=== PATIENT | male | born 2000 | race African-American/Black ===

== ENCOUNTER 2023-03-10 16:16 | Emergency (ER) | payer BC, SELFPAY ==
--- NOTE | 2023-03-10 16:15 | DI.RAD_ITS ---
Exam(s) XR ANKLE RT COMPLETE EXAM: XR ANKLE RT COMPLETE CLINICAL HISTORY: injury, pain. TECHNIQUE: 2D digital imaging was performed. Three views. COMPARISON: No exams were available for comparison FINDINGS: BONES: Minimally displaced fracture lateral malleolus. No additional fractures identified. No bony destructive lesion is seen. JOINTS: Marked ankle mortise widening medially. SOFT TISSUE: Swelling. Punctate densities at the plantar aspect of the foot could represent debris o n the skin surface. IMPRESSION: Lateral malleolar fracture with marked medial ankle mortise widening. DATA REPOSITORY: RADIATION DOSE DELIVERED:
--- NOTE | 2023-03-10 16:15 | DI.RAD_ITS ---
Exam(s) XR TIB/FIB RT EXAM: XR TIB/FIB RT CLINICAL HISTORY: injury, pain. TECHNIQUE: 2D digital imaging was performed. Two views. COMPARISON: CR,XR XR ANKLE RT COMPLETE from 03/10/2023 FINDINGS: BONES: Lateral malleolar fracture is seen. There is widening of the medial ankle mortise. No fract ures are seen more proximally in the tibia and fibula. The knee is unremarkable as visualized. No b morgan destructive lesion is seen. . SOFT TISSUE: Swelling around malleoli. IMPRESSION: Lateral malleolar fracture with medial ankle mortise widening. DATA REPOSITORY: RADIATION DOSE DELIVERED:
[2023-03-10 16:20] VITALS: BP 161/94; PULSE 67; RESP 16; TEMP 37.1; O2SAT 100
--- NOTE | 2023-03-10 17:30 | DI.RAD_ITS ---
Exam(s) XR RIBS LT W PA LAT CHEST CLINICAL HISTORY pain, fall from 10ft. COMPARISON: No exams were available for comparison TECHNIQUE:: PA and lateral views of the chest and four views of the left ribs were performed. FINDINGS: LUNGS: Clear. No pleural abnormality seen. HEART: Normal. MEDIASTINUM: Normal. BONES: No displaced rib fracture is seen. No compression fractures are seen in the thoracic spine. No bony destructive lesion is seen. OTHER FINDINGS: None. IMPRESSION: 1. Unremarkable radiographic appearance of the left ribs. 2. No acute pulmonary findings.
--- NOTE | 2023-03-10 17:37 | DI.VRAD_ITS ---
PROCEDURE INFORMATION: Exam: XR Right Ankle Exam date and time: 03/10/2023 5:10 PM Age: 22 years old Clinical indication: Other: Injury, pain TECHNIQUE: Imaging protocol: Radiologic exam of the right ankle. Views: 3 or more views. COMPARISON: No relevant prior studies available. FINDINGS: Bones/joints: Fracture dislocation distal fibula. Widening and subluxation of the talotibial joint. Joint effusion. Punctate radiopaque densities in the plantar surface of the foot visualized. Soft tissues: Soft tissue swelling. IMPRESSION: Fracture dislocation of the ankle. Distal fibula fracture. Subluxation of the talocalcaneal joint. Dictated and Authenticated by: Kalee Coulter MD. Ordering:KIAH Garza MD
[2023-03-10] MEDS: Acetaminophen 325 MG TAB 650 MG PO (17:50)
[2023-03-10] MEDS: Ibuprofen 600 MG TAB PO (17:50)
--- NOTE | 2023-03-10 17:50 | DI.VRAD_ITS ---
PROCEDURE INFORMATION: Exam: XR Right Tibia and Fibula Exam date and time: 03/10/2023 5:12 PM Age: 22 years old Clinical indication: Other: Injury, pain TECHNIQUE: Imaging protocol: Radiologic exam of the right tibia and fibula. Views: 2 views. COMPARISON: CR XR ANKLE RT COMPLETE 12/12/2022 17:10 FINDINGS: Bones/joints: Distal fibula fracture. Widening of the talocalcaneal joint. Soft tissues: Soft tissue swelling of the ankle. IMPRESSION: Fractured distal fibula. Widening of the talocalcaneal joint. Dictated and Authenticated by: Kalee Coulter MD. Ordering:KIAH Garza MD
--- NOTE | 2023-03-10 17:50 | NUR.NOTE ---
Nursing Note: When asking pt during triage if anything else hurt, pt denied any other injuries. pt then told doctor his chest also hurt later on.
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
[2023-03-10] MEDS: HYDROmorphone 2 MG/ML SYR 1 MG IM (18:38)
--- NOTE | 2023-03-10 19:30 | DI.RAD_ITS ---
Exam(s) XR ANKLE RT COMPLETE EXAM: XR ANKLE RT COMPLETE CLINICAL HISTORY: post reduction/splint. TECHNIQUE: 2D digital imaging was performed. Three views. COMPARISON: CR,XR XR ANKLE RT COMPLETE from 03/10/2023 FINDINGS: A splint has been placed. Lateral malleolar fracture and medial ankle mortise widening is again demon strated. DATA REPOSITORY: RADIATION DOSE DELIVERED:
--- NOTE | 2023-03-10 20:29 | DI.VRAD_ITS ---
PROCEDURE INFORMATION: Exam: XR Right Ankle Exam date and time: 03/10/2023 7:54 PM Age: 22 years old Clinical indication: Post reduction / splint TECHNIQUE: Imaging protocol: Radiologic exam of the right ankle. Views: 3 or more views. COMPARISON: CR XR ANKLE RT COMPLETE 03/10/2023 5:10 PM FINDINGS: Tubes, catheters and devices: Compared to the prior right ankle examination performed on 03/10/2023 at 1710 hrs, posterior fiberglass splint has been applied to the distal right leg / right ankle / right foot region. Bones/joints: Once again noted is the acute oblique fracture involving the right fibular distal metaphysis without significant displacement of major fracture fragments. Persistent mild lateral displacement of the right talus with respect to the distal right tibia. Soft tissues: Right ankle soft tissue edema. IMPRESSION: 1. Compared to the prior right ankle examination performed on 03/10/2023 at 1710 hrs, posterior fiberglass splint has been applied to the distal right leg / right ankle / right foot region. 2. Once again noted is the acute oblique fracture involving the right fibular distal metaphysis without significant displacement of major fracture fragments. 3. Persistent mild lateral displacement of the right talus with respect to the distal right tibia. Dictated and Authenticated by: Rinku Julian MD. Ordering:KIAH Garza MD
--- NOTE | 2023-03-10 20:38 | DI.VRAD_ITS ---
PROCEDURE INFORMATION: Exam: XR Left Ribs Exam date and time: 03/10/2023 8:01 PM Age: 22 years old Clinical indication: Pain, fall from 10ft TECHNIQUE: Imaging protocol: Radiologic exam of the left ribs. Views: 2 views. COMPARISON: No relevant prior studies available. FINDINGS: Bones/joints: No acute fracture. Pleural space: No pneumothorax or pleural fluid collection. Soft tissues: Normal. IMPRESSION: 1. No acute fracture. 2. No pneumothorax or pleural fluid collection. PROCEDURE INFORMATION: Exam: XR Chest Exam date and time: 03/10/2023 8:01 PM Age: 22 years old Clinical indication: Pain, fall from 10ft TECHNIQUE: Imaging protocol: Radiologic exam of the chest. Views: 2 views. COMPARISON: No relevant prior studies available. FINDINGS: Lungs: No alveolar infiltrate. Pleural spaces: No pleural fluid collection. No pneumothorax. Heart/Mediastinum: Normal heart size. Bones/joints: Unremarkable for patient age. IMPRESSION: No active pulmonary disease. Dictated and Authenticated by: Rinku Julian MD. Ordering:KIAH Garza MD
== END 2023-03-10 20:47 | disposition home or self-care (01) ==
PROVIDERS: Emergency Provider Student in an Organized Health Care Education/Training Program
DX: S82.831A Other fracture of upper and lower end of right fibula, initial encounter for closed fracture (principal); W19.XXXA Unspecified fall, initial encounter
CPT/HCPCS: 29515; 96372; 99284; 71046; 71100; 73590; 73610; J1170